=== PATIENT | male | born 1965 | race Caucasian/White ===

== ENCOUNTER 2024-02-15 12:48 | Emergency (ER) | payer MEDICARE, SELFPAY ==
[2024-02-15] VITALS (9 sets, daily range): BP systolic 129–192; BP diastolic 77–97; PULSE 63–79; RESP 16–19; TEMP 36.7; O2SAT 91–98; BMI 29.9
--- NOTE | 2024-02-15 12:53 | ED_ITS ---
Discharge Plan Disposition Patient Disposition: Xfer Short-Term Hosp Condition: Fair Referrals Follow up/Referrals: Deisy Kemp [Primary Care Provider] - See instructions Clinical Impressions Clinical Impression: Ataxia, Carotid stenosis Stand Alone Forms Stand Alone Forms: Transfer Record - ED Print Language Print Language: Khmer Discharge ED Provider: Ron Hernandez General Adult HPI <Ron Hernandez MD - Last Filed: 02/15/24 19:02> General Chief complaint: PAIN Stated complaint: right arm tingling, face tingling, dizzy Time Seen by Provider: 02/15/24 12:53 History of Present Illness HPI narrative: The patient presents with a chief complaint of right arm weakness, dizziness, and worsening balance. The symptoms began yesterday and came on suddenly. The patient also reports numbness on the right side of his face, specifically the front top area. He denies any neck pain or swelling of the face. The patient has a medical history of high blood pressure, diabetes, glaucoma, two heart events, and a partial colon removal. He is currently on blood thinners and multiple other medications. The patient has no vision in his right eye due to glaucoma. He experienced a feeling of nausea yesterday but did not vomit. He reports feeling off balance but does not feel like he is going to pass out. The patient visited his primary care doctor yesterday, who ordered a CT scan of the head without dye. The results were unremarkable, and the doctor advised monitoring blood pressure. The patient was given a blood pressure medication that he was told would immediately lower his blood pressure, but not to take it daily. The patient had a fall two months ago, resulting in bursitis in his elbow. He was on antibiotics, and the swelling has improved but not completely resolved. The patient visited his doctor about a week ago regarding the persistent swelling and was told the infection was likely no longer present. He reports difficulty with coordination, particularly when attempting to touch his nose or the doctor's finger. He also mentions having poor vision, especially on the right side. The patient's family member notes that he has been stumbling and lives alone, which is a cause for concern. Please note that above description of symptoms, in this electronic medical record under categorization of recalled from ER triage doctor by RN are reflective of an initial nursing assessment, however, is not reflective of my full history and physical exam that was personally taken and clarified. Consequentially, this preceding description of symptoms, which may include the patient's categorized chief complaint in the EMR, do not reflect my personal clinical impression, and the ultimate description of history of present illness and patient stated complaints should be deferred to this section of the note. Unless stated otherwise or congruent with this section of the note, additional signs, symptoms, or incongruence should be interpreted as inaccurate with my clinical impression. Related Data Allergies Allergy/AdvReac Type Severity Reaction Status Date / Time adhesive tape Allergy Mild Hives Verified 02/15/24 13:41 PFSH <Ron Hernandez MD - Last Filed: 02/15/24 19:02> [facility] Disclaimer: The information contained in this section may have been updated after the patient was seen, as this information can be updated by other users. Social History (Updated 02/15/24 @ 17:33 by Vhae Crowe MD) Smoking Status: Current every day smoker alcohol intake: never current occupational status: other Travel in the last 8 weeks: None <Ron Hernandez MD - Last Filed: 02/15/24 19:02> ROS Obtained: Yes other As per HPI Physical Exam <Ron Hernandez MD - Last Filed: 02/15/24 19:02> General General appearance: alert Head Head exam: atraumatic and normocephalic Eye Eye exam: Present normal appearance Neck Neck exam: Present normal inspection Chest Chest inspection: Present normal inspection and symmetric chest wall rise Respiratory Respiratory exam: Present normal lung sounds bilaterally; Absent respiratory distress Cardiovascular Cardiovascular exam: Present regular rate and normal rhythm Abdominal Exam Abdominal exam: Present soft Neurological Exam Neurological exam: Present alert and oriented X3 Psychiatric Psychiatric exam: Present normal affect and normal mood Skin Skin exam: Present warm and dry Other Other exam information: Right-sided dysmetria, paresthesias in right upper extremity, ataxic gait, negative Romberg test. No cranial nerve deficit. Medical Decision Making <Ron Hernandez MD - Last Filed: 02/15/24 19:02> Medical Records Medical records reviewed: Yes I reviewed the patient's medical records. William Inquiry Pt receiving controlled substance: No Vital Signs: 02/15/24 12:50 02/15/24 13:00 02/15/24 13:30 Temperature 98.1 F Temperature Source Oral Pulse Rate 71 64 Pulse Rate [Left Radial] 70 Respiratory Rate 19 Blood Pressure 129/77 149/93 H Blood Pressure [Right Arm] 129/77 Blood Pressure Mean [Right Arm] 94 02 Sat by Pulse Oximetry 96 96 94 L Oxygen Delivery Method Room Air Room Air 02/15/24 14:00 02/15/24 15:00 02/15/24 15:11 Temperature Temperature Source Pulse Rate 63 71 68 Pulse Rate [Left Radial] Respiratory Rate Blood Pressure 143/85 H 192/96 H 138/77 Blood Pressure [Right Arm] Blood Pressure Mean [Right Arm] 02 Sat by Pulse Oximetry 91 L 98 98 Oxygen Delivery Method Room Air 02/15/24 15:31 02/15/24 15:49 02/15/24 18:26 Temperature 98.0 F Temperature Source Pulse Rate 68 68 79 Pulse Rate [Left Radial] Respiratory Rate 16 Blood Pressure 158/97 H 165/94 H 165/94 H Blood Pressure [Right Arm] Blood Pressure Mean [Right Arm] 02 Sat by Pulse Oximetry 98 97 Oxygen Delivery Method Lab Data Lab Results 02/15/24 13:08: WBC 11.0 H, RBC 4.83, Hgb 17.5, Hct 52.3 H, MCV 108.3 H, MCH 36.2 H, MCHC 33.4, RDW 16.5, Plt Count 208, MPV 7.6, Neut % (Auto) 78.8, Lymph % (Auto) 10.2, Coleman % (Auto) 5.4, Eos % (Auto) 4.6, Baso % (Auto) 0.9, Neut # (Auto) 8.7 H, Lymph # (Auto) 1.1, Coleman # (Auto) 0.6, Eos # (Auto) 0.5 H, Baso # (Auto) 0.1, Sodium 135 L, Potassium 4.5, Chloride 106, Carbon Dioxide 22, Anion Gap 11.5, BUN 27 H, Creatinine 1.60 H, Estimated Creat Clear 67, Estimated GFR 45 L, Est GFR ( Amer) 54 L, Glucose 155 H, Calcium 8.9, Phosphorus 4.5, Magnesium 1.9, Total Bilirubin 1.3, AST 42, ALT 36, Alkaline Phosphatase 101, Total Protein 7.1, Albumin 4.0, Globulin 3.1, Albumin/Globulin Ratio 1.3, TSH 0.44 L, Free T4 1.15, Plasma/Serum Alcohol < 10 02/15/24 15:56: Urine Opiates Screen Negative, Urine Methadone Screen Negative, Ur Barbituates Screen Negative, Ur Phencyclidine Scrn Negative, Ur Amphetamines Screen Negative, U Benzodiazepines Scrn Negative, Urine Cocaine Screen Negative, U Marijuana (THC) Screen Negative 02/15/24 13:08 02/15/24 13:08 Orders (Tests/Meds): ED MEDICATIONS Discontinued Medications Generic Name Dose Route Start Last Admin Trade Name Ronda PRN Reason Stop Dose Admin Iopamidol 100 ml 02/15/24 14:45 02/15/24 14:47 Iopamidol-370 (76%);100ml Bottle IV 02/15/24 14:46 100 ml ONCE ONE Administration Iopamidol 50 ml 02/15/24 14:46 02/15/24 14:47 Iopamidol-370 (76%);100ml Bottle IV 02/15/24 14:47 50 ml ONCE ONE Administration Sodium Chloride 50 ml 02/15/24 14:45 02/15/24 14:47 0.9 % Sodium Chloride 50 Ml Vial IV 02/15/24 14:46 50 ml ONCE ONE Administration Sodium Chloride 10 ml 02/15/24 14:45 02/15/24 14:47 Sodium Chloride 0.9% 10ml Syr (Rad Only) IV 02/15/24 14:46 10 ml ONCE ONE Administration Sodium Chloride 30 ml 02/15/24 14:46 02/15/24 14:47 0.9 % Sodium Chloride 50 Ml Vial IV 02/15/24 14:47 30 ml ONCE ONE Administration ORDERS Category Date Time Status CT angio head Stat Cat Scan 02/15/24 14:[address] angio neck Stat Cat Scan 02/15/24 14:[address] cervical spine wo con Stat Cat Scan 02/15/24 14:[address] head/brain wo con Stat Cat Scan 02/15/24 14:14 Completed CTA Chest [CT angio chest PE protocol] Stat Cat Scan 02/15/24 14:13 Completed CBC w/Auto Diff [Complete Blood Count Auto Diff] Stat Lab 02/15/24 13:08 Completed CMP [Comprehensive Metabolic Panel] Stat Lab 02/15/24 13:08 Completed Drug Screen,Urine Stat Lab 02/15/24 15:56 Completed Ethanol [Ethyl Alcohol] Stat Lab 02/15/24 13:08 Completed Free T4 (Free Thyroxine) Stat Lab 02/15/24 13:08 Completed MAG [Magnesium] Stat Lab 02/15/24 13:08 Completed PHOS [Phosphorous] Stat Lab 02/15/24 13:08 Completed TSH [Thyroid Stimulating Hormone] Stat Lab 02/15/24 13:08 Completed Medical Decision Narrative: Patient with history and exam per above presenting for evaluation of multiple complaints including right-sided paresthesias, discoordination, Diagnoses considered include stroke, SVC syndrome, intracranial hemorrhage, electrolyte abnormality, peripheral vertigo, among others. ED workup and treatment included: ED MEDICATIONS Discontinued Medications Generic Name Dose Route Start Last Admin Trade Name Freq PRN Reason Stop Dose Admin Iopamidol 100 ml 02/15/24 14:45 02/15/24 14:47 Iopamidol-370 (76%);100ml Bottle IV 02/15/24 14:46 100 ml ONCE ONE Administration Iopamidol 50 ml 02/15/24 14:46 02/15/24 14:47 Iopamidol-370 (76%);100ml Bottle IV 02/15/24 14:47 50 ml ONCE ONE Administration Sodium Chloride 50 ml 02/15/24 14:45 02/15/24 14:47 0.9 % Sodium Chloride 50 Ml Vial IV 02/15/24 14:46 50 ml ONCE ONE Administration Sodium Chloride 10 ml 02/15/24 14:45 02/15/24 14:47 Sodium Chloride 0.9% 10ml Syr (Rad Only) IV 02/15/24 14:46 10 ml ONCE ONE Administration Sodium Chloride 30 ml 02/15/24 14:46 02/15/24 14:47 0.9 % Sodium Chloride 50 Ml Vial IV 02/15/24 14:47 30 ml ONCE ONE Administration ORDERS Category Date Time Status CT angio head Stat Cat Scan 02/15/24 14:[address] angio neck Stat Cat Scan 02/15/24 14:[address] cervical spine wo con Stat Cat Scan 02/15/24 14:[address] head/brain wo con Stat Cat Scan 02/15/24 14:14 Completed CTA Chest [CT angio chest PE protocol] Stat Cat Scan 02/15/24 14:13 Completed CBC w/Auto Diff [Complete Blood Count Auto Diff] Stat Lab 02/15/24 13:08 Completed CMP [Comprehensive Metabolic Panel] Stat Lab 02/15/24 13:08 Completed Drug Screen,Urine Stat Lab 02/15/24 15:56 Completed Ethanol [Ethyl Alcohol] Stat Lab 02/15/24 13:08 Completed Free T4 (Free Thyroxine) Stat Lab 02/15/24 13:08 Completed MAG [Magnesium] Stat Lab 02/15/24 13:08 Completed PHOS [Phosphorous] Stat Lab 02/15/24 13:08 Completed TSH [Thyroid Stimulating Hormone] Stat Lab 02/15/24 13:08 Completed Labs were independently interpreted by me, significant for creatinine 1.60, white blood cell count 11.0. Other labs pending at this time. Imaging pending at this time. Care was transferred to incoming physician. Reassessment this is Dr. Crowe I took over from Dr. Pelletier around [address] scans of the patient's head and CT angios were performed which I personally interpreted also reviewed radiology read there is 70% bilateral carotid stenosis at the proximal bifurcation which do not explain patient's posterior circulation exam findings. No definitive posterior fossa abnormality such as stroke or tumor. Patient's last known normal is yesterday greater than 24 hours. Stroke is still in the differential other demyelinating conditions are certainly on the possibility as well as other neurologic conditions also. No definitive diagnosis at this point. I went and reexamined the patient he still has some ataxia but not as severe as what was described to me from Dr. Pelletier patient agrees and family agrees that this is mildly improved. Differential still broad. I spoke with the stroke team at [facility] and while stroke is on the differential patient will need an MRI and neurology consultation. [facility] agreed to accept the patient accepting physician Dr. Tresa Green. <Vahe Crowe MD - Last Filed: 02/15/24 17:33> Vital Signs: 02/15/24 12:50 02/15/24 13:00 02/15/24 13:30 Temperature 98.1 F Temperature Source Oral Pulse Rate 71 64 Pulse Rate [Left Radial] 70 Respiratory Rate 19 Blood Pressure 129/77 149/93 H Blood Pressure [Right Arm] 129/77 Blood Pressure Mean [Right Arm] 94 02 Sat by Pulse Oximetry 96 96 94 L Oxygen Delivery Method Room Air Room Air 02/15/24 14:00 02/15/24 15:00 02/15/24 15:11 Temperature Temperature Source Pulse Rate 63 71 68 Pulse Rate [Left Radial] Respiratory Rate Blood Pressure 143/85 H 192/96 H 138/77 Blood Pressure [Right Arm] Blood Pressure Mean [Right Arm] 02 Sat by Pulse Oximetry 91 L 98 98 Oxygen Delivery Method Room Air 02/15/24 15:31 02/15/24 15:49 02/15/24 18:26 Temperature 98.0 F Temperature Source Pulse Rate 68 68 79 Pulse Rate [Left Radial] Respiratory Rate 16 Blood Pressure 158/97 H 165/94 H 165/94 H Blood Pressure [Right Arm] Blood Pressure Mean [Right Arm] 02 Sat by Pulse Oximetry 98 97 Oxygen Delivery Method Lab Data Lab results reviewed: Yes I reviewed the patient's lab results. Lab Results 02/15/24 13:08: WBC 11.0 H, RBC 4.83, Hgb 17.5, Hct 52.3 H, MCV 108.3 H, MCH 36.2 H, MCHC 33.4, RDW 16.5, Plt Count 208, MPV 7.6, Neut % (Auto) 78.8, Lymph % (Auto) 10.2, Coleman % (Auto) 5.4, Eos % (Auto) 4.6, Baso % (Auto) 0.9, Neut # (Auto) 8.7 H, Lymph # (Auto) 1.1, Coleman # (Auto) 0.6, Eos # (Auto) 0.5 H, Baso # (Auto) 0.1, Sodium 135 L, Potassium 4.5, Chloride 106, Carbon Dioxide 22, Anion Gap 11.5, BUN 27 H, Creatinine 1.60 H, Estimated Creat Clear 67, Estimated GFR 45 L, Est GFR ( Amer) 54 L, Glucose 155 H, Calcium 8.9, Phosphorus 4.5, Magnesium 1.9, Total Bilirubin 1.3, AST 42, ALT 36, Alkaline Phosphatase 101, Total Protein 7.1, Albumin 4.0, Globulin 3.1, Albumin/Globulin Ratio 1.3, TSH 0.44 L, Free T4 1.15, Plasma/Serum Alcohol < 10 02/15/24 15:56: Urine Opiates Screen Negative, Urine Methadone Screen Negative, Ur Barbituates Screen Negative, Ur Phencyclidine Scrn Negative, Ur Amphetamines Screen Negative, U Benzodiazepines Scrn Negative, Urine Cocaine Screen Negative, U Marijuana (THC) Screen Negative Orders (Tests/Meds): ED MEDICATIONS Discontinued Medications Generic Name Dose Route Start Last Admin Trade Name Ronda PRN Reason Stop Dose Admin Iopamidol 100 ml 02/15/24 14:45 02/15/24 14:47 Iopamidol-370 (76%);100ml Bottle IV 02/15/24 14:46 100 ml ONCE ONE Administration Iopamidol 50 ml 02/15/24 14:46 02/15/24 14:47 Iopamidol-370 (76%);100ml Bottle IV 02/15/24 14:47 50 ml ONCE ONE Administration Sodium Chloride 50 ml 02/15/24 14:45 02/15/24 14:47 0.9 % Sodium Chloride 50 Ml Vial IV 02/15/24 14:46 50 ml ONCE ONE Administration Sodium Chloride 10 ml 02/15/24 14:45 02/15/24 14:47 Sodium Chloride 0.9% 10ml Syr (Rad Only) IV 02/15/24 14:46 10 ml ONCE ONE Administration Sodium Chloride 30 ml 02/15/24 14:46 02/15/24 14:47 0.9 % Sodium Chloride 50 Ml Vial IV 02/15/24 14:47 30 ml ONCE ONE Administration ORDERS Category Date Time Status CT angio head Stat Cat Scan 02/15/24 14:[address] angio neck Stat Cat Scan 02/15/24 14:[address] cervical spine wo con Stat Cat Scan 02/15/24 14:[address] head/brain wo con Stat Cat Scan 02/15/24 14:14 Completed CTA Chest [CT angio chest PE protocol] Stat Cat Scan 02/15/24 14:13 Completed CBC w/Auto Diff [Complete Blood Count Auto Diff] Stat Lab 02/15/24 13:08 Completed CMP [Comprehensive Metabolic Panel] Stat Lab 02/15/24 13:08 Completed Drug Screen,Urine Stat Lab 02/15/24 15:56 Completed Ethanol [Ethyl Alcohol] Stat Lab 02/15/24 13:08 Completed Free T4 (Free Thyroxine) Stat Lab 02/15/24 13:08 Completed MAG [Magnesium] Stat Lab 02/15/24 13:08 Completed PHOS [Phosphorous] Stat Lab 02/15/24 13:08 Completed TSH [Thyroid Stimulating Hormone] Stat Lab 02/15/24 13:08 Completed Medical Decision Narrative: Patient with history and exam per above presenting for evaluation of Diagnoses considered include ED workup and treatment included: Labs were independently interpreted by me, significant for Imaging was independently visualized and interpreted by me, significant for Please refer to radiology report for full details. My clinical impression at this time is most consistent with I discussed my clinical impression with patient and answered all questions. At this time, the evidence for any other entities in the differential is insufficient to warrant any further testing or ED observation. This was explained to the patient. The patient was advised that persistent or worsening symptoms require further evaluation. Reassessment this is Dr. Crowe I took over from Dr. Pelletier around [address] scans of the patient's head and CT angios were performed which I personally interpreted also reviewed radiology read there is 70% bilateral carotid stenosis at the proximal bifurcation which do not explain patient's posterior circulation exam findings. No definitive posterior fossa abnormality such as stroke or tumor. Patient's last known normal is yesterday greater than 24 hours. Stroke is still in the differential other demyelinating conditions are certainly on the possibility as well as other neurologic conditions also. No definitive diagnosis at this point. I went and reexamined the patient he still has some ataxia but not as severe as what was described to me from Dr. Pelletier patient agrees and family agrees that this is mildly improved. Differential still broad. I spoke with the stroke team at [facility] and while stroke is on the differential patient will need an MRI and neurology consultation. [facility] agreed to accept the patient accepting physician Dr. Tresa Green. Critical Care <Ron Hernandez MD - Last Filed: 02/15/24 19:02> Critical Care Time Critical Care Time: No <Vahe Crowe MD - Last Filed: 02/15/24 17:33> Critical Care Time Critical Care Time: Yes Attestation: On 02/15/24, the high probability of a clinically significant, sudden or life threatening deterioration of the following system(s) required my full and direct attention, intervention and personal management. The time I documented below is in addition to time spent performing reported procedures but includes the following listed in this critical care notation. Total Time Total Critical Care Time: 35
--- NOTE | 2024-02-15 13:01 | PC.NURSE ---
FSBS is 154 at this time.
[2024-02-15 13:20] LABS: Basophils # 0.1 K/mm3 (0-0.2); Basophils % 0.9 % (0.1-2.0); Eosinophils # 0.5 K/mm3 (0.0-0.4); Eosinophils % 4.6 % (0.1-12.0); Hematocrit 52.3 % (42.0-52.0); Hemoglobin 17.5 g/dL (14.1-18.0); Lymphocytes # 1.1 K/mm3 (0.7-4.5); Lymphocytes % 10.2 % (10-50); Mean Corpuscular HGB Conc 33.4 g/dL (31.8-35.4); Mean Corpuscular Hemoglobin 36.2 pg (27.0-31.2); Mean Corpuscular Volume 108.3 fl (80-94); Mean Platelet Volume 7.6 fl (7.4-10.4); Monocytes # 0.6 K/mm3 (0.1-1.0); Monocytes % 5.4 % (1.7-9.3); Neutrophils # 8.7 K/mm3 (1.8-7.8); Neutrophils % 78.8 % (37.0-80.0); Platelet Count 208 K/mm3 (142-424); Red Blood Count 4.83 M/mm3 (4.60-6.20); Red Cell Distribution Width 16.5 % (11.5-17.5)
[2024-02-15 13:26] LABS: Chloride 106 mmol/L (98-107); Sodium 135 mmol/L (136-145)
[2024-02-15 13:27] LABS: Potassium 4.5 mmoL/L (3.5-5.1)
[2024-02-15 13:29] LABS: Alanine Aminotransferase 36 U/L (12-78); Albumin/Globulin Ratio 1.3 (1.1-1.8); Alkaline Phosphatase 101 U/L (38-126); Anion Gap 11.5 mEq/L (5-15); Aspartate Amino Transferase 42 U/L (17-59); Bilirubin,Total 1.3 mg/dl (0.2-1.3); Blood Urea Nitrogen 27 mg/dl (9-20); Carbon Dioxide 22 mmol/L (22.0-30.0); Estimated Glomerular Filt Rate 45 ml/min (>60); GFR (African American) 54 ML/MIN (>60); Globulin 3.1 g/dL (1.3-3.2); Phosphorous 4.5 mg/dl (2.5-4.5); Total Protein,Serum 7.1 g/dl (6.3-8.2)
[2024-02-15 13:30] LABS: Calcium 8.9 mg/dl (8.4-10.2); Glucose 155 mg/dl (74-100); Magnesium 1.9 mg/dl (1.6-2.3)
[2024-02-15 13:43] LABS: Creatinine Clearance Estimated 67 mL/min (50-200)
[2024-02-15 13:52] LABS: Free T4 (Free Thyroxine) 1.15 ng/dl (0.78-2.19)
[2024-02-15 14:00] LABS: Thyroid Stimulating Hormone 0.44 uIU/mL (0.465-4.68)
--- NOTE | 2024-02-15 14:13 | CT_ITS ---
FINAL REPORT TECHNIQUE: The patient was injected with IV contrast. Axial images were obtained through the chest in a PE protocol. 3-D reconstruction images were also performed. Individualized dose reduction techniques using automated exposure control or adjustment of the MA and/or KV according to patient's size were employed. CLINICAL HISTORY: chest pain, facial plethora, ataxia COMPARISON: None FINDINGS: Mediastinal vasculature is adequately opacified. No pulmonary artery filling defects are identified to suggest PE. There is no aortic dissection. There is no axillary adenopathy. There are several prevascular nodes in the mediastinum measuring up to 16 mm in size. Favor benign etiology of these nodes as the fatty yamile of the lymph nodes are preserved. The heart size is normal. There is no pericardial or pleural effusion. Limited images of the upper abdomen are remarkable for fatty infiltration of the liver. No suspicious infiltrate or nodule is identified. IMPRESSION: No pulmonary embolus or dissection. Several prevascular nodes in the mediastinum, measuring up to 16 mm in size, favor benign etiology as described above. Fatty infiltration of the liver. Reviewed, Interpreted and Dictated by Luis Alberts MD Transcribed by Jessica Rhodes Authenticated and . [facility]
--- NOTE | 2024-02-15 14:14 | CT_ITS ---
FINAL REPORT TECHNIQUE: multiple axial CT images were performed from the foramen magnum to the vertex without enhancement. CLINICAL HISTORY: RUE numbness, face numbness, ataxia COMPARISON: None FINDINGS: The ventricles are enlarged. There is mild atrophy. There are extensive changes of chronic microvascular ischemia. There is no evidence of hemorrhage, mass effect, or edema. No extra-axial fluid is seen. The sinuses are normal. IMPRESSION: Atrophy and chronic changes without acute process. Reviewed, Interpreted and Dictated by Luis Alberts MD Transcribed by Ashlyn Vale Authenticated and [facility]
--- NOTE | 2024-02-15 14:14 | CT_ITS ---
FINAL REPORT TECHNIQUE: thin section axial CT with and without IV contrast supplemented with multiplanar 3-D reconstruction of the head. This study was performed with techniques to keep radiation doses as low as reasonably achievable, (ALARA)individualized dose reduction techniques using automated exposure control or adjustment of mA and/or kV according to the patient's size were employed. CLINICAL HISTORY: RUE numbness, face numbness, ataxia COMPARISON: None FINDINGS: HEAD CT: The ventricles are normal in size. There is no evidence of hemorrhage. No masses are identified. No extra-axial fluid is seen. The sinuses are normal. CTA: The cranial circulation is unremarkable. There is no significant stenosis, aneurysm or occlusion. IMPRESSION: No acute process. Reviewed, Interpreted and Dictated by Luis lAberts MD Transcribed by Jessica Rhodes Authenticated and [facility]
--- NOTE | 2024-02-15 14:14 | CT_ITS ---
FINAL REPORT TECHNIQUE: Axial images were obtained of the cervical spine by computed tomography. Coronal and sagittal reconstruction process performed. This study was performed with techniques to keep radiation doses as low as reasonably achievable (ALARA). Individualized dose reduction techniques using automated exposure control or adjustment of mA and/or kV according to the patient''s size were employed. CLINICAL HISTORY: RUE numbness, face numbness, ataxia COMPARISON: None FINDINGS: Cervical vertebrae show normal height. There is moderate anterior osteophyte formation at C5-6. There is no malalignment. The facets are properly aligned. IMPRESSION: Hypertrophic changes of degenerative disc disease, most evident at C5-6. No acute bony abnormality. Reviewed, Interpreted and Dictated by Luis Alberts MD Transcribed by Ashlyn Vale Authenticated and [facility]
--- NOTE | 2024-02-15 14:33 | CT_ITS ---
FINAL REPORT TECHNIQUE: NASCET technique utilized for stenosis evaluation. Axial imaging of the head and neck was obtained with contrast. This study was performed with techniques to keep radiation doses as low as reasonably achievable, (ALARA). Individualized dose reduction techniques using automated exposure control or adjustment of mA and/or kV according to the patient's size were employed. CLINICAL HISTORY: R sided numbness, ataxia COMPARISON: None FINDINGS: RIGHT CAROTID: There is dense vascular calcification of the right carotid bifurcation, with approximately 70% luminal diameter stenosis at the origin of the internal carotid artery. LEFT CAROTID: There is dense vascular calcification of the left carotid bifurcation, with approximately 70% luminal diameter stenosis at the origin of the internal carotid artery. VERTEBRALS: The vertebral arteries are codominant. No significant stenosis is present. IMPRESSION: Dense vascular calcifications of the carotid bifurcations bilaterally, with approximately 70% luminal diameter stenosis at the origins of both the right and the left internal carotid arteries. Vertebral arteries are patent and codominant without significant stenosis. Reviewed, Interpreted and Dictated by Luis Alberts MD Transcribed by Jessica Rhodes Authenticated and [facility]
[2024-02-15] MEDS: SODIUM CHLORIDE 0.9% 10ML SYR (RAD ONLY) 10 ML IV (14:47)
[2024-02-15] MEDS: IOPAMIDOL-370 (76%);100ML BOTTLE 100 ML IV (14:47)
[2024-02-15] MEDS: 0.9 % SODIUM CHLORIDE 50 ML VIAL 30 ML IV (14:47)
[2024-02-15] MEDS: 0.9 % SODIUM CHLORIDE 50 ML VIAL IV (14:47)
[2024-02-15] MEDS: IOPAMIDOL-370 (76%);100ML BOTTLE 50 ML IV (14:47)
[2024-02-15 15:04] LABS: Ethyl Alcohol < 10 mg/dl (0-10)
[2024-02-15 16:28] LABS: Opiate Screen,Urine Negative ng/ml (<300)
[2024-02-15 16:29] LABS: Amphetamine/Metha Screen,Urine Negative ng/ml (<1000); Barbiturates Screen,Urine Negative ng/ml (<200); Benzodiazepines Screen,Urine Negative ng/ml (<200); Cannabinoid Screen,Urine Negative ng/ml (<50); Cocaine Screen,Urine Negative ng/ml (<300); Methadone Screen,Urine Negative ng/ml (<300); Phencyclidine Screen,Urine Negative ng/ml (<25)
--- NOTE | 2024-02-15 17:23 | PC.NURSE ---
radiology notified to power share images to [facility]
--- NOTE | 2024-02-15 17:25 | PC.NURSE ---
speaking with yarsani about transfer
--- NOTE | 2024-02-15 17:31 | PC.NURSE ---
accepted by [facility]
--- NOTE | 2024-02-15 18:07 | PC.NURSE ---
[facility] aware of transfer to [facility]
--- NOTE | 2024-02-15 18:15 | PC.NURSE ---
report called to quirino at [facility]
--- NOTE | 2024-02-15 20:45 | PC.NURSE ---
[facility] called requesting meds given in er.
== END 2024-02-15 18:27 | disposition short-term general hospital (02) ==
PROVIDERS: Emergency Provider Emergency Medicine; PCP Internal Medicine
DX: R26.0 Ataxic gait (principal); I65.23 Occlusion and stenosis of bilateral carotid arteries; R20.2 Paresthesia of skin; R42 Dizziness and giddiness; R11.0 Nausea; F17.210 Nicotine dependence, cigarettes, uncomplicated; I10 Essential (primary) hypertension
CPT/HCPCS: 70450; 70496; 70498; 71275; 72125; 80050; 80053; 80307; 80320; 83735; 84100; 84439; 84443; 85025; 99285; G0480; Q9967

== ENCOUNTER 2024-09-27 08:21 | Outpatient (CLI) | payer MEDICARE, SELFPAY ==
[2024-09-27 09:02] LABS: Creatinine,Urine Random 50 mg/dL (Not Estab.)
[2024-09-27 10:30] LABS: Microalbumin/Creatinine Ratio 2000.4
[2024-10-01 14:36] LABS: Free Kappa Lt Chains,Ur 119.78 mg/L (1.17-86.46); Free Lambda Lt Chains,Ur 24.04 mg/L (0.27-15.21)
[2024-10-02 15:59] LABS: Miscellaneous Test SCANNED IMAGE
== END 2024-09-27 23:59 | disposition home or self-care (01) ==
LOC: LAB 08:25
PROVIDERS: PCP Internal Medicine; Visit Provider Internal Medicine
DX: E11.22 Type 2 diabetes mellitus with diabetic chronic kidney disease (principal); N12 Tubulo-interstitial nephritis, not specified as acute or chronic; N28.9 Disorder of kidney and ureter, unspecified
CPT/HCPCS: 82043; 82570; 83883